=== PATIENT | female | born 1950 | race Caucasian/White ===

== ENCOUNTER 2024-04-28 09:08 | Outpatient (CLI) | payer MEDICARE, OTHER, SELFPAY ==
[2024-04-28 09:18] LABS: Adenovirus F 40/41, stool Not Detected (NotDetected); Astrovirus Not Detected (NotDetected); Campylobacter Not Detected (NotDetected); Clostridium Difficile A/B, PCR Not Detected (NotDetected); Cryptosporidium Not Detected (NotDetected); Cyclospora Cayetanesis Not Detected (NotDetected); Entamoeba histolytica Not Detected (NotDetected); Enteroaggregative E coli Not Detected (NotDetected); Enteropathogenic E coli Not Detected (NotDetected); Enterotoxigenic E coli Not Detected (NotDetected); Giardia lamblia Not Detected (NotDetected); Norovirus Not Detected (NotDetected); Plesimonas Shigalloides, PCR Not Detected (NotDetected); Rotavirus A Not Detected (NotDetected); Salmonella, PCR Not Detected (NotDetected); Sapovirus Not Detected (NotDetected); Shiga-like toxin E coli Not Detected (NotDetected); Shigella Enterovasive E coli Not Detected (NotDetected); Vibrio Cholerae Not Detected (NotDetected); Vibrio, PCR Not Detected (NotDetected); Yersinia Entercolitica, PCR Not Detected (NotDetected)
== END 2024-04-28 23:59 | disposition home or self-care (01) ==
LOC: LAB 09:10
PROVIDERS: PCP Family Medicine; Visit Provider Nurse Practitioner Family
DX: R19.7 Diarrhea, unspecified (principal); R19.4 Change in bowel habit; R15.2 Fecal urgency; R11.2 Nausea with vomiting, unspecified; R10.9 Unspecified abdominal pain
CPT/HCPCS: 87506

== ENCOUNTER 2024-06-30 11:04 | Day surgery (SDC) | payer MEDICARE, OTHER, SELFPAY ==
[2024-06-23 15:14] VITALS: BMI 29.6
[2024-06-30] MEDS: LACTATED RINGERS 1000ML 1,000 ML 25 ML IV (12:21)
[2024-06-30 12:30] VITALS: BP 133/79; PULSE 104; RESP 18; TEMP 36.5; O2SAT 98; BMI 29.6
[2024-06-30 12:35] LABS: POC Glucose,Bedside 113 (70-110)
--- NOTE | 2024-06-30 13:31 | EXP.ANES.CKL ---
[facility] Disclaimer: The information contained in this section may have been updated after the patient was seen, as this information can be updated by other users. Medical History History of left heart catheterization History of left heart catheterization GERD (gastroesophageal reflux disease) Coronary artery disease Hypertension Hypothyroidism Prediabetes Surgical History History of arthroscopic knee surgery H/O thyroidectomy Family History Other Cancer Coronary artery disease Diabetes Hyperlipidemia Hypertension Social History Smoking Status: Never smoker alcohol intake: current substance use type: denies use current occupational status: unemployed Travel in the last 8 weeks: None [facility] Anesthesia Checklist Patient Identification Patient Identification: Verbal (Name & ) Structural Data Admitted From: Home Planned Operative Procedure/s: colonoscopy Consent for Planned Operative Procedure(s) Verified: Yes NPO Status Verified Time NPO: 00:00 Airway Assessment Mallampati Score:: Class II C-Spine Mobility Assessed: Yes TMJ Mobility Assessed: Yes Dentition: Good Dentition Neurological Assessment Level of Consciousness: Awake, Alert and Appropriate Anesthesia Plan Anesthesia Risk discussed: Yes Anesthesia Plan: Verified ASA Class: II Anesthesia Type: MAC
[2024-06-30 13:32] VITALS: O2SAT 99
--- NOTE | 2024-06-30 13:41 | EXP.HP ---
History of Present Illness *Admission Date: 06/30/24 *Reason for visit:: Change in bowel habits, diarrhea, abdominal cramps and rectal bleeding *History of present illness: Mrs. Pichardo is a 74-year-old female who is here for diagnostic colonoscopy secondary to change in bowel habits with diarrhea, urgency, crampy abdominal discomfort and rectal bleeding. Her last colonoscopy was 10 years ago. The examination is deemed medically necessary for diagnostic colonoscopy. The patient has been seen, interviewed and examined prior to the procedure by both myself and the anesthesia provider. [facility] Disclaimer: The information contained in this section may have been updated after the patient was seen, as this information can be updated by other users. Medical History (Updated 06/30/24 @ 13:43 by Jose Demarco II, MD) History of left heart catheterization History of left heart catheterization GERD (gastroesophageal reflux disease) Coronary artery disease Hypertension Hypothyroidism Prediabetes Surgical History History of arthroscopic knee surgery H/O thyroidectomy Family History Other Cancer Coronary artery disease Diabetes Hyperlipidemia Hypertension Social History Smoking Status: Never smoker alcohol intake: current substance use type: denies use current occupational status: unemployed Travel in the last 8 weeks: None Other Medical History Have you received the Pneumonia Vaccine: Yes Review of Systems Review of Systems Review of systems (narrative): Negative *Cardiovascular Comments: Negative *Gastrointestinal Comments: Negative *Genitourinary Comments: Negative *Musculoskeletal Comments: Negative *Neurologic Comments: Negative Meds Home Medications and Allergies Home Medications ?Medication ?Instructions ?Recorded ?Confirmed ?Type bisoprolol fumarate 10 mg tablet 10 mg PO DAILY 04/27/24 06/23/24 History clopidogrel 75 mg tablet 75 mg PO DAILY 04/27/24 06/30/24 History glimepiride 1 mg tablet 1 mg PO DAILY 04/27/24 06/23/24 History levothyroxine 137 mcg tablet 137 mcg PO DAILY 04/27/24 06/23/24 History losartan 100 1 tab PO DAILY 04/27/24 06/23/24 History mg-hydrochlorothiazide 25 mg tablet omeprazole 40 mg capsule,delayed 40 mg PO DAILY 04/27/24 06/23/24 History release dicyclomine 10 mg capsule 10 mg PO QID PRN abdominal 05/19/24 06/23/24 Rx pain/urgency #120 caps sodium,potassium,mag sulfates 17.5 See Rx Instructions PO .COMPLEX 06/17/24 06/23/24 Rx gram-3.13 gram-1.6 gram oral soln #354 mL (Suprep Bowel Prep Kit) New Prescriptions to Start Prescriptions: Allergies Allergy/AdvReac Type Severity Reaction Status Date / Time bee venom protein (honey bee) Allergy Mild Anaphylaxis Verified 06/30/24 12:20 Amoxicillin Allergy Unknown Rash Uncoded 06/30/24 12:20 Contrast Media, Iodine Allergy Unknown Fainting Uncoded 06/30/24 12:20 Related From Penicillin V Potassium Allergy Unknown Redness of Uncoded 06/30/24 12:20 Skin Iodine Allergy Unknown Fainting Uncoded 06/30/24 12:20 Penicillin Allergy Unknown Rash Uncoded 06/30/24 12:20 Exam Data for Last 24 hours Vital signs and Labs for Last 24 Hours: Temp Pulse Resp BP Pulse Ox O2 Del Method O2 Flow Rate 97.7 F 104 H 18 133/79 98 Nasal Cannula 5 06/30/24 12:30 06/30/24 12:30 06/30/24 12:30 06/30/24 12:30 06/30/24 12:30 06/30/24 13:32 06/30/24 13:32 Laboratory Results - last 24 hr 06/30/24 12:26: POC Glucose 113 H I & O for Last 24 hours: Intake & Output 06/27/24 06/28/24 06/29/24 06/30/24 23:59 23:59 23:59 23:59 Weight 162 lb *Routine HEENT Exam Head: Present normocephalic Eye: Present EOMI and PERRL ENT: Present mucous membranes moist *Routine Neck Exam Neck: Present supple *Routine Respiratory Exam Respiratory: Present CTA bilaterally *Routine Cardiovascular Exam Cardiovascular: Present RRR *Routine Abdominal Exam Abdominal: Present soft and normoactive bowel sounds; Absent tenderness *Routine Rectal Exam Rectal:: deferred *Routine Genitalia Exam Genitalia:: deferred *Routine Extremities Exam Extremities: Absent cyanosis, clubbing or edema *Routine Skin Exam Skin: Present warm; Absent rash *Routine Neurological Exam Neurological: Present alert and oriented X3 Assessment and Plan *Assessment and plan (1) Chronic diarrhea: Status: Acute Category: Medical Code(s): K52.9 - Noninfective gastroenteritis and colitis, unspecified (2) Abdominal cramping: Status: Acute Category: Medical Code(s): R10.9 - Unspecified abdominal pain (3) Fecal urgency: Status: Acute Category: Medical Code(s): R15.2 - Fecal urgency (4) Change in bowel habits: Status: Acute Category: Medical Code(s): R19.4 - Change in bowel habit (5) Bright red rectal bleeding: Status: Acute Category: Medical Code(s): K62.5 - Hemorrhage of anus and rectum (6) Bleeding internal hemorrhoids: Status: Acute Category: Medical Code(s): K64.8 - Other hemorrhoids Plan A/P: 1. Acute/chronic diarrhea with crampy abdominal discomfort and rectal bleeding is the preprocedural diagnosis. The patient will be anesthetized/sedated using MAC sedation. The patient has been seen and examined. Cardiac and lung assessment prior to the examination is stable. Proceed with planned diagnostic colonoscopy
--- NOTE | 2024-06-30 14:00 | P.PCN_ITS ---
[facility] Procedure Note Date: 06/30/24 Time: 14:00 Procedure Note:: Colonoscopy Procedure Report: Colonoscopy with cold snare polypectomy, cold biopsies and hemorrhoid band ligation Endoscopist: Jose Demarco II, MD Referring physician: Avtar Garcia MD Date of Procedure: June 30, 2024 Equipment: Olympus 190 variable stiffness pediatric colonoscope Sedation: MAC sedation Indication: Mrs. Pichardo is a 74-year-old female who is here for diagnostic colonoscopy. She has had a marked change in bowel habits since earlier this year. This began in July with diarrhea daily. She reports bowel urgency and crampy abdominal discomfort. The patient does have moderate gassiness and some bloating. She also has had very frequent hemorrhoidal bleeding and hemorrhoid prolapse with some external hemorrhoids. She had a former history of constipation. Her last colonoscopy was 10 years ago (Dr. Karthikeyan Freed in [facility]). Her PCR stool panel was negative. She was placed on FiberCon with slight improvement. She does state that her bowel movements are watery and loose. She reports no family history of colon cancer. Procedure: Prior to the procedure, a history and physical exam was performed, and patient's medications and allergies were reviewed. The risks, benefits and alternatives of the sedation and procedure were discussed with the patient. All questions were answered and informed consent was obtained. The patient was brought to the procedure room. Patient identification and proposed procedure were verified by the physician and the nurse. The patient was placed in a left lateral decubitus position and the scope was passed under direct vision. Throughout the procedure, the patient's blood pressure, pulse, and oxygen saturations were monitored continuously. The colonoscopy was accomplished without difficulty. The patient tolerated the procedure well. Findings: On digital rectal examination there was slightly diminished rectal tone. There was internal hemorrhoid prolapse. The colonoscope was introduced through the anal canal to the rectum and advanced to the cecum. The ileocecal valve and appendiceal orifice were identified. The scope was advanced a short distance into the ileum which appeared grossly normal. The scope was then withdrawn into the colon. There were 4 polyps (ascending x 1 (9 mm), transverse x 1 (12 mm) and descending x 2 (5 and 10 mm)). These were all removed via cold snare polypectomy. Random biopsies were taken from both the right and left colon separately to rule out microscopic colitis. The remaining cecum, ascending and transverse colon and mucosa were grossly normal. There were scattered diverticuli throughout the descending and sigmoid colon (LEFT colon). The rectum itself was normal. Upon retroflexion within the rectum there were grade 2-3 internal hemorrhoids. There was moderate hemorrhoidal prolapse. 3 columns of hemorrhoids were banded using 3 bands with excellent ligation effect. The preparation was excellent throughout with [place] Preparation Score of 9. The cecal time was 15 minutes. Impression: 1. Colonic polyps x 4 (slightly larger adenomatous colon polyps) 2. Left-sided diverticulosis 3. Grade 2-3 internal hemorrhoids status post band ligation x 3 Plan: I will follow-up the biopsies to rule out microscopic colitis. Certainly if the biopsies are indicative of microscopic colitis, I would initiate budesonide. If the biopsies are normal, we will initiate other treatment options (i.e. colestipol, alosetron, Lomotil, etc.). I will follow-up the polyp histology. Based on the size and number of adenomatous polyps, I would recommend repeat surveillance colonoscopy again in 3 years.
--- NOTE | 2024-06-30 14:18 | P.PNANES_ITS ---
[facility] Disclaimer: The information contained in this section may have been updated after the patient was seen, as this information can be updated by other users. Medical History (Updated 06/30/24 @ 13:43 by Jose Demarco II, MD) History of left heart catheterization History of left heart catheterization GERD (gastroesophageal reflux disease) Coronary artery disease Hypertension Hypothyroidism Prediabetes Surgical History History of arthroscopic knee surgery H/O thyroidectomy Family History Other Cancer Coronary artery disease Diabetes Hyperlipidemia Hypertension Social History Smoking Status: Never smoker alcohol intake: current substance use type: denies use current occupational status: unemployed Travel in the last 8 weeks: None [facility] Anesthesia Checklist Patient Identification Patient Identification: Verbal (Name & ) Structural Data Admitted From: Home Planned Operative Procedure/s: colonoscopy Consent for Planned Operative Procedure(s) Verified: Yes Airway Assessment Mallampati Score:: Class II C-Spine Mobility Assessed: Yes TMJ Mobility Assessed: Yes Dentition: Good Dentition Neurological Assessment Level of Consciousness: Awake, Alert and Appropriate Anesthesia Plan Anesthesia Risk discussed: Yes Anesthesia Plan: Verified ASA Class: II Anesthesia Type: MAC
[2024-06-30 14:24] VITALS: BP 133/73; PULSE 64; RESP 16; TEMP 36.3; O2SAT 98
[2024-06-30 14:39] VITALS: BP 146/70; PULSE 65; RESP 16; O2SAT 98
[2024-06-30 14:54] VITALS: BP 140/63; PULSE 65; RESP 16; TEMP 36.4; O2SAT 100
== END 2024-06-30 14:54 | disposition home or self-care (01) ==
PROVIDERS: PCP Family Medicine; Visit Provider Internal Medicine Gastroenterology
PROC: (CPT 45380; principal; 2024-06-30 13:00)
DX: K52.9 Noninfective gastroenteritis and colitis, unspecified (principal); R10.9 Unspecified abdominal pain; R15.2 Fecal urgency; R19.4 Change in bowel habit; K62.5 Hemorrhage of anus and rectum; K64.8 Other hemorrhoids; D12.2 Benign neoplasm of ascending colon; D12.4 Benign neoplasm of descending colon; D12.3 Benign neoplasm of transverse colon; K57.30 Diverticulosis of large intestine without perforation or abscess without bleeding; R73.03 Prediabetes; Z79.84 Long term (current) use of oral hypoglycemic drugs
CPT/HCPCS: 45380; 45385; 45398; 82962; 88305; C1889; J7120